=== PATIENT | female | born 1995 | race African-American/Black ===

== ENCOUNTER 2016-10-07 09:34 | Emergency (ER) | payer MEDICARE, OTHER ==
[~2016-10-07] VITALS: Ht 162.6 cm; Wt 65.0 kg
[2016-10-07 09:48] VITALS: BP 110/63
== END 2016-10-07 11:47 | disposition home or self-care (01) ==
LOC: ER 10:50
DX: S61.210A Laceration without foreign body of right index finger without damage to nail, initial encounter (principal); W45.8XXA Other foreign body or object entering through skin, initial encounter; Y93.89 Activity, other specified; Y92.89 Other specified places as the place of occurrence of the external cause
CPT/HCPCS: 12001; 81025; 99283

== ENCOUNTER 2017-02-03 16:25 | Observation (INO) | payer OTHER ==
[~2017-02-03] VITALS: Ht 162.6 cm; Wt 81.6 kg
[2017-02-03] MEDS ORDERED: PREN1TAB78 PO (17:10)
== END 2017-02-03 17:30 | disposition home or self-care (01) ==
LOC: L&D 16:25
PROVIDERS: ADMIT Obstetrics & Gynecology; ATTEND Obstetrics & Gynecology
DX: O26.892 Other specified pregnancy related conditions, second trimester (principal); R10.30 Lower abdominal pain, unspecified; Z3A.21 21 weeks gestation of pregnancy
CPT/HCPCS: 99281; G0378

== ENCOUNTER 2017-11-21 20:54 | Emergency (ER) | payer OTHER ==
[~2017-11-21] VITALS: Ht 160 cm; Wt 66.0 kg
[~2017-11-21 20:54] MED LIST: PREN1TAB78 PO
[2017-11-21 23:26] LABS: CLARITY URINE CLEAR (CLEAR); COLOR URINE YELLOW (YELLOW); KETONES URINE TRACE (NEGATIVE); LEUKOCYTE ESTERASE URINE TRACE (NEGATIVE); NITRITE URINE NEGATIVE (NEGATIVE); OCCULT BLOOD URINE TRACE (NEGATIVE); PROTEIN URINE TRACE (NEGATIVE); SPECIFIC GRAVITY URINE 1.034 (1.005-1.030)
[2017-11-22 00:09] LABS: EOSINOPHILS % 2.4 % (0.0-5.0); HEMATOCRIT. 35.4 % (36.0-48.0); HEMOGLOBIN. 11.7 g/dL (12.0-16.0); LYMPHOCYTES % 29.5 % (20.0-50.0); MEAN CORPUSCULAR HEMOGLOBIN 29.6 pg (28.0-32.0); MEAN CORPUSCULAR VOLUME 89.3 fL (81.0-99.0); MEAN PLATELET VOLUME 7.4 fl (7.4-10.4); MONOCYTES % 6.4 % (2.0-8.0); NEUTROPHILS % 60.7 % (40.0-76.0); PLATELET 240 x1000/uL (130-400); RED BLOOD CELL COUNT 3.96 mill/uL (4.2-5.4); RED CELL DISTRIBUTION WIDTH 14.1 % (11.6-14.6)
[2017-11-22 00:13] LABS: CHLORIDE 107 mEq/L (98-107)
[2017-11-22 00:19] LABS: ETHANOL BLOOD < 10 mg/dL
[2017-11-22 00:26] LABS: HCG SCREEN NEGATIVE
[2017-11-22 03:51] VITALS: BP 104/58
== END 2017-11-22 03:57 | disposition home or self-care (01) ==
LOC: ER 20:54
DX: N39.0 Urinary tract infection, site not specified (principal); F41.9 Anxiety disorder, unspecified; R00.2 Palpitations; R42 Dizziness and giddiness
CPT/HCPCS: 36415; 80053; 81003; 81025; 84443; 84484; 84703; 85025; 93005; 99285; G0482

== ENCOUNTER 2019-09-21 22:41 | Emergency (ER) | payer OTHER ==
[~2019-09-21] VITALS: Ht 162.6 cm; Wt 60.0 kg
[2019-09-21] MEDS ORDERED: IBUPROFEN 600MG TABLET PO ONE (23:15)
[2019-09-21 23:23] LABS: CLARITY URINE CLEAR (CLEAR); COLOR URINE YELLOW (YELLOW); KETONES URINE NEGATIVE (NEGATIVE); LEUKOCYTE ESTERASE URINE NEGATIVE (NEGATIVE); NITRITE URINE NEGATIVE (NEGATIVE); OCCULT BLOOD URINE NEGATIVE (NEGATIVE); PH URINE 6.5 (4.5-8.0); PROTEIN URINE NEGATIVE (NEGATIVE); SPECIFIC GRAVITY URINE 1.027 (1.005-1.030)
[2019-09-21 23:36] VITALS: BP 108/53
== END 2019-09-22 00:07 | disposition left against medical advice (07) ==
LOC: ER 22:41
DX: N83.209 Unspecified ovarian cyst, unspecified side (principal)
CPT/HCPCS: 81003; 99283

== ENCOUNTER 2019-10-18 19:18 | Emergency (ER) | payer OTHER ==
[~2019-10-18] VITALS: Ht 162.6 cm; Wt 58.0 kg
[2019-10-18 19:23] VITALS: BP 112/67
[2019-10-18] MEDS ORDERED: IBUPROFEN 600MG TABLET PO ONE (20:15)
== END 2019-10-18 20:21 | disposition home or self-care (01) ==
LOC: ER 19:18
DX: K04.7 Periapical abscess without sinus (principal); F17.200 Nicotine dependence, unspecified, uncomplicated
CPT/HCPCS: 99283